=== PATIENT | male | born 1985 | race Caucasian/White ===

== ENCOUNTER 2022-02-06 11:29 | Emergency (ER) | payer MEDICAID ==
[~2022-02-06] VITALS: Ht 167.6 cm; Wt 69.0 kg
[2022-02-06] MEDS: BACITRACIN ZINC OINT UDPKT TOP ONE (14:47)
[2022-02-06] MEDS: HYDROCODONE/ACETAMINOPHEN 5/325MG TABLET PO ONE (14:47)
[2022-02-06] MEDS: TETANUS, DIPHTHERIA, PERTUSSIS VAC/PF 0.5ML (>10YR OLD) IM ONE (16:35)
[2022-02-06 18:15] VITALS: BP 142/92
== END 2022-02-06 18:30 | disposition home or self-care (01) ==
LOC: ER 11:42
DX: S71.111A Laceration without foreign body, right thigh, initial encounter (principal); X58.XXXA Exposure to other specified factors, initial encounter; Y93.89 Activity, other specified; Y92.89 Other specified places as the place of occurrence of the external cause; Y99.8 Other external cause status
CPT/HCPCS: 12001; 73552; 90471; 90715; 99283